=== PATIENT | male | born 1975 | race Caucasian/White ===

== ENCOUNTER 2016-09-16 08:00 | Emergency (ER) | payer OTHER ==
[~2016-09-16] VITALS: Ht 167.6 cm; Wt 72.7 kg
[2016-09-16] MEDS ORDERED: GLUC500C5 PO (08:25)
[2016-09-16] MEDS ORDERED: MULTCAP12 PO (08:25)
[2016-09-16] MEDS ORDERED: FISH1000 PO (08:25)
[2016-09-16 09:41] LABS: BASO % 0.3 % (0.0-1.0); EOS % 0.5 % (0.0-3.0); LARGE UNSTAINED CELL # 0.1 K/mm3 (0.0-0.4); LARGE UNSTAINED CELL % 0.9 % (0.0-4.0); LYMPH % 13.9 % (24.0-44.0); MEAN CORPUSCULAR HEMOGLOBIN 31.1 pg (27.0-33.0); MEAN CORPUSCULAR HGB CONC 34.6 g/dl (32.0-36.5); MEAN CORPUSCULAR VOLUME 89.7 fl (80.0-96.0); MONO # 0.4 K/mm3 (0.0-0.8); MONO % 5.2 % (0.0-5.0); NEUTROPHILS # 5.6 K/mm3 (1.8-7.7); NEUTROPHILS % 79.3 % (36.0-66.0); PLATELET COUNT, AUTOMATED 161 k/mm3 (150-450); RED CELL DISTRIBUTION WIDTH 12.1 % (11.5-14.5)
[2016-09-16 09:59] LABS: ANION GAP 7 MEQ/L (8-16); BLOOD UREA NITROGEN 20 MG/DL (7-18); CALCIUM LEVEL 9.4 MG/DL (8.5-10.1); CARBON DIOXIDE LEVEL 27 MEQ/L (21-32); CHLORIDE LEVEL 109 MEQ/L (98-107); CREATININE FOR GFR 1.08 MG/DL (0.70-1.30); GLOMERULAR FILTRATION RATE > 60.0 (>60); GLUCOSE, FASTING 97 MG/DL (70-105); POTASSIUM SERUM 4.4 MEQ/L (3.5-5.1); SODIUM LEVEL 143 MEQ/L (136-145)
--- NOTE | 2016-09-16 10:32 | REP ---
REASON: Hematuria. COMPARISON EXAMINATION: None. The lung bases are clear. Limited evaluation of the solid intra-abdominal organs and gallbladder show no gross abnormalities. Limited evaluation of the pancreas, adrenal glands, and kidneys show no gross abnormalities. There is no nephroureterolithiasis, hydronephrosis, or hydroureter. There are no urinary bladder calcifications. Limited evaluation of the intra-abdominal and intrapelvic bowel loops and their mesenteries show them to be within normal limits. There is no free fluid or free air in the abdomen or pelvis. There is no evidence of an intra-abdominal or intrapelvic mass or adenopathy. Limited evaluation of the abdominal aorta and para-aortic regions show them to be within normal limits. Bone window technique through the examination shows the osseous structures without be within normal limits for the patient's age. IMPRESSION: CT findings are within normal limits. Signed by Robby Tatum DO 09/16/2016 10:58 A
[2016-09-16 11:10] VITALS: BP 110/84
== END 2016-09-16 11:11 | disposition home or self-care (01) ==
LOC: M ED 08:00
DX: R31.9 Hematuria, unspecified (principal); Z87.442 Personal history of urinary calculi